=== PATIENT | male | born 1965 | race Caucasian/White ===

== ENCOUNTER → 2017-05-11 | Outpatient (CLI) | payer OTHER ==
[~2017-05-11] MED LIST: ALBUTEROL SULFATE 0.083% 2.5 MG/3 ML INH IH ONE
== END ==
LOC: RESP 10:00
PROVIDERS: ATTEND Orthopaedic Surgery
DX: R06.02 Shortness of breath (principal)
CPT/HCPCS: 71046; 94060; 94727; 94729

== ENCOUNTER → 2019-01-31 | Outpatient (CLI) | payer OTHER | END | disposition home or self-care (01) | LOC: RESP 10:04 | PROVIDERS: ATTEND Orthopaedic Surgery | DX: J45.909 Unspecified asthma, uncomplicated (principal); Z87.891 Personal history of nicotine dependence | CPT/HCPCS: 71046; 94060; 94727; 94729 ==